=== PATIENT | female | born 1985 | race Caucasian/White ===

== ENCOUNTER 2022-02-16 14:43 | Emergency (ER) | payer OTHER ==
[2022-02-16 15:40] VITALS: BP 137/88
--- NOTE | 2022-02-16 16:13 | XRAY Report ---
PROCEDURE: Chest 1 View X-Ray INDICATIONS: Chest pain TECHNIQUE: One view of the chest was acquired. COMPARISON: None FINDINGS: Surgical changes and devices: None. Lungs and pleura: No pleural effusions or pneumothorax. Lungs are clear. Mediastinum: Mediastinal contours appear normal. Heart size is normal. Bones and chest wall: No suspicious bony lesions. Overlying soft tissues appear unremarkable. IMPRESSION: No acute pulmonary process. Reviewed by: Amelie Concepcion MD on 02/16/2022 4:12 PM PDT Approved by: Amelie Concepcion MD on 02/16/2022 4:12 PM PDT Station ID: [id number]
[2022-02-16 16:17] LABS: BASOPHILS # (AUTO) 0.1 10^3/uL (0.0-0.1); BASOPHILS % (AUTO) 0.6 %; EOSINOPHILS # (AUTO) 0.2 10^3/uL (0.0-0.7); EOSINOPHILS % (AUTO) 2.5 %; HCT - HEMATOCRIT 44.6 % (37.0-47.0); LYMPHOCYTES # (AUTO) 2.1 10^3/uL (1.5-3.5); LYMPHOCYTES % (AUTO) 22.3 %; MEAN CORPUSCULAR HEMOGLOBIN 29.8 pg (27.0-31.0); MEAN CORPUSCULAR HGB CONC 33.6 g/dL (32.0-36.0); MEAN CORPUSCULAR VOLUME 88.5 fL (81.0-99.0); MEAN PLATELET VOLUME 8.6 fL (7.9-10.8); MONOCYTES # (AUTO) 0.6 10^3/uL (0.0-1.0); MONOCYTES % (AUTO) 6.1 %; NEUTROPHILS # (AUTO) 6.4 10^3/uL (1.5-6.6); NEUTROPHILS % (AUTO) 68.2 %; PLT - PLATELET COUNT 293 10^3/uL (130-450); RED BLOOD COUNT 5.04 10^6/uL (4.20-5.40); RED CELL DISTRIBUTION WIDTH 12.1 % (12.0-15.0); WHITE BLOOD COUNT 9.4 x10^3/uL (4.8-10.8)
[2022-02-16 16:30] LABS: ALBUMIN 4.5 g/dL (3.2-5.5); ALBUMIN/GLOBULIN RATIO 1.4 (1.0-2.2); BILIRUBIN,TOTAL 0.5 mg/dL (0.2-1.0); CALCIUM 9.5 mg/dL (8.5-10.3); CREATININE 0.7 mg/dL (0.4-1.0); POTASSIUM 4.4 mmol/L (3.5-5.0); TOTAL PROTEIN 7.8 g/dL (6.7-8.2)
--- NOTE | 2022-02-16 17:46 | ED Physician Documentation ---
PD HPI HEENT - Stated complaint Stated Complaint: C+,CHEST PAIN - Chief complaint Chief Complaint: Resp - History obtained from History obtained from: Patient - Additional information Additional information: 36-year-old woman with rheumatoid arthritis in remission not currently on any immunomodulating therapy. For 3 months she has had sinus congestion and sinus pain with bilateral ear pain. Over the weekend developed headache and chills and tested positive for COVID. Yesterday and today she each had brief very brief episodes of substernal nonradiating very sharp chest pain radiating across the chest not with exertion. Yesterday was milder, today more severe lasting about 30 seconds. Pain-free now. No pedal edema or calf pain. Review of Systems Constitutional: denies: Fever, Chills Cardiac: reports: Chest pain / pressure. denies: Palpitations Respiratory: reports: Dyspnea. denies: Cough PD PAST MEDICAL HISTORY - Present Medications Home Medications: Ambulatory Orders Medication Instructions Recorded Confirmed Amox/Clav 875/125 [Augmentin] 1 each PO Q12H #20 tablet 02/16/22 Cetirizine [ZyrTEC] 10 mg PO DAILY 02/16/22 02/16/22 Spironolactone [Aldactone] 25 mg PO DAILY 02/16/22 02/16/22 metFORMIN [Glucophage] 500 mg PO DAILY 02/16/22 02/16/22 - Allergies Allergies/Adverse Reactions: Allergies Allergy/AdvReac Type Severity Reaction Status Date / Time No Known Drug Allergies Allergy Verified 02/16/22 15:40 PD ED PE NORMAL - Vitals Vital signs reviewed: Yes - General General: Alert and oriented X 3, No acute distress - HEENT HEENT: PERRL, EOMI, Ears normal - Neck Neck: Supple, no meningeal sign, No bony TTP - Cardiac Cardiac: RRR, No murmur - Respiratory Respiratory: No respiratory distress, Clear bilaterally - Abdomen Abdomen: Normal bowel sounds, Soft, Non tender - Back Back: No spinal TTP - Derm Derm: No rash - Extremities Extremities: No edema, No calf tenderness / cord - Neuro Neuro: Alert and oriented X 3, Normal speech Results - Vitals Vitals: Vital Signs - 24 hr 02/16/22 15:33 Temperature 36.7 C Heart Rate 86 Respiratory 20 Rate Blood Pressure 137/88 H O2 Saturation 99 Oxygen O2 Source Room air - EKG (time done) 1542 Rate: Rate (enter#) (87) Rhythm: NSR [place]: Normal Intervals: Normal MO QRS: Normal Ischemia: Normal ST segments Computer interpretation: Agree with computer - Labs Labs: Laboratory Tests 02/16/22 02/16/22 02/16/22 16:12 16:12 16:12 WBC 9.4 RBC 5.04 Hgb 15.0 Hct 44.6 MCV 88.5 MCH 29.8 MCHC 33.6 RDW 12.1 Plt Count 293 MPV 8.6 Neut # (Auto) 6.4 Lymph # (Auto) 2.1 [place] # (Auto) 0.6 Eos # (Auto) 0.2 Baso # (Auto) 0.1 Absolute Nucleated RBC 0.00 Nucleated RBC % 0.0 Sodium 136 Potassium 4.4 Chloride 100 L Carbon Dioxide 29 Anion Gap 7.0 BUN 14 Creatinine 0.7 Estimated GFR (MDRD) 95 Glucose 102 H Calcium 9.5 Total Bilirubin 0.5 AST 30 ALT 39 Alkaline Phosphatase 60 Troponin I High Sens < 2.3 L Total Protein 7.8 Albumin 4.5 Globulin 3.3 Albumin/Globulin Ratio 1.4 Lipase 40 - Rads (name of study) 1v cxr Radiology: EMP read contemporaneously (NAD) PD MEDICAL DECISION MAKING - ED course ED course: 36-year-old woman with longstanding sinus infection, will treat but here now with symptomatic COVID and transient chest pain with negative ischemic work-up. We discussed antivirals, but after discussion she declined. PE considered but unlikely given normal pulse ox and no leg symptoms and no tachycardia. Departure - Departure Disposition: 01 Home, Self Care Clinical Impression: Sinusitis Condition: Good Record reviewed to determine appropriate education?: Yes Instructions: ED Sinusitis Abx Tx Prescriptions: Amox/Clav 875/125 [Augmentin] 1 each PO Q12H #20 tablet Comments: I sent a prescription for antibiotics to [facility] in [place]. Call your doctor to arrange a follow-up appointment, make the next available appointment. In the interim, return anytime if worse or if new symptoms develop.
== END 2022-02-16 17:54 | disposition home or self-care (01) ==
LOC: ED 14:43
DX: J32.9 Chronic sinusitis, unspecified (principal); U07.1 COVID-19; R07.89 Other chest pain
CPT/HCPCS: 36415; 80053; 83690; 84484; 85025; 93005; 99284

== ENCOUNTER 2022-03-16 03:27 | Emergency (ER) | payer OTHER ==
[2022-03-16 03:41] VITALS: BP 135/87
--- NOTE | 2022-03-16 03:49 | ED Physician Documentation ---
History of Present Illness - Stated complaint Stated Complaint: COUGH/CONGESTION - Chief complaint Chief Complaint: Resp - History obtained from History obtained from: Patient - Additonal information Additional information: 36-year-old woman, previously healthy, presents with left ear pain, nasal congestion, clear rhinorrhea, sore throat and cough for the past several days. Denies fever. She does have sick contacts (everyone in her house is sick with similar symptoms). Review of Systems Ten Systems: 10 systems reviewed and negative Constitutional: denies: Fever Nose: reports: Rhinorrhea / runny nose, Congestion Respiratory: reports: Cough. denies: Dyspnea GI: denies: Nausea, Vomiting PD PAST MEDICAL HISTORY - Past Medical History Cardiovascular: None Respiratory: None Neuro: None Endocrine/Autoimmune: None GI: None FUR REMODELER: None : None HEENT: None Psych: None Musculoskeletal: Rheumatoid arthritis Derm: None - Past Surgical History Past Surgical History: No - Present Medications Home Medications: Ambulatory Orders Medication Instructions Recorded Confirmed Spironolactone [Aldactone] 25 mg PO DAILY 02/16/22 03/16/22 metFORMIN [Glucophage] 500 mg PO DAILY 02/16/22 03/16/22 Cefdinir 300 mg PO BID #20 cap 03/16/22 - Allergies Allergies/Adverse Reactions: Allergies Allergy/AdvReac Type Severity Reaction Status Date / Time No Known Drug Allergies Allergy Verified 03/16/22 03:40 - Social History Does the pt smoke?: No Smoking Status: Never smoker Does the pt drink ETOH?: No Does the pt have substance abuse?: No - Immunizations Immunizations are current?: Yes PD ED PE NORMAL - Vitals Vital signs reviewed: Yes - General General: Alert and oriented X 3, No acute distress, Well developed/nourished - HEENT HEENT: Atraumatic, PERRL, EOMI, Moist mucous membranes, Pharynx benign, Other (Left TM erythematous. Right TM clear. Clear rhinorrhea) - Neck Neck: Supple, no meningeal sign - Cardiac Cardiac: RRR - Respiratory Respiratory: No respiratory distress, Clear bilaterally - Derm Derm: Normal color, Warm and dry - Extremities Extremities: No deformity - Neuro Neuro: No motor deficit, No sensory deficit - Psych Psych: Normal mood, Normal affect Results - Vitals Vitals: Vital Signs - 24 hr 03/16/22 03:30 Temperature 36.7 C Heart Rate 72 Respiratory 18 Rate Blood Pressure 135/87 H O2 Saturation 99 Oxygen O2 Source Room air PD MEDICAL DECISION MAKING - ED course ED course: 36-year-old woman presents with viral URI symptoms as well as left otitis media. Antibiotics prescribed. She recently was on amoxicillin 3 weeks ago therefore cefdinir was provided. Return precautions given. She will follow-up with her primary care provider. Departure - Departure Disposition: 01 Home, Self Care Clinical Impression: Viral URI with cough, Otitis media Condition: Good Instructions: ED Otitis Media Acute Adult Prescriptions: Cefdinir 300 mg PO BID #20 cap Comments: You are seen in the emergency department for evaluation of cough, congestion, runny nose, and ear pain. Your left ear appears to have mild ear infection. I am prescribing cefdinir, which can be picked up from your [facility] pharmacy in [place]. Please follow-up with your primary care provider and return to the emergency department if you have any new or worsening symptoms or other concerns.
== END 2022-03-16 04:05 | disposition home or self-care (01) ==
LOC: ED 03:27
DX: J06.9 Acute upper respiratory infection, unspecified (principal); H66.92 Otitis media, unspecified, left ear
CPT/HCPCS: 99282

== ENCOUNTER 2023-06-28 08:45 | Outpatient (CLI) | payer OTHER ==
[2023-06-28 11:59] LABS: HCT - HEMATOCRIT 44.1 % (37.0-47.0); HGB - HEMOGLOBIN 14.3 g/dL (12.0-16.0); MEAN CORPUSCULAR HEMOGLOBIN 28.6 pg (27.0-31.0); MEAN CORPUSCULAR HGB CONC 32.4 g/dL (32.0-36.0); MEAN CORPUSCULAR VOLUME 88.2 fL (81.0-99.0); MEAN PLATELET VOLUME 9.2 fL (7.9-10.8); RED CELL DISTRIBUTION WIDTH 12.8 % (12.0-15.0); WHITE BLOOD COUNT 5.7 x10^3/uL (4.8-10.8)
[2023-06-28 12:37] LABS: CHOL/HDL RATIO 3.4 (<4.4); CHOLESTEROL 178 mg/dL; HDL CHOLESTEROL 52 mg/dL; LDL CHOLESTEROL,CALCULATED 104 mg/dL; TRIGLYCERIDES 110 mg/dL (48-352); VLDL CHOLESTEROL 22 mg/dL
[2023-06-28 13:05] LABS: ESTIMATED AVERAGE GLUCOSE 100 mg/dL (70-100); HEMOGLOBIN A1c% 5.1 % (4.27-6.07)
== END 2023-06-28 08:46 | disposition home or self-care (01) ==
LOC: LAB.N 08:45
PROVIDERS: ATTEND Obstetrics & Gynecology
DX: E28.2 Polycystic ovarian syndrome (principal)
CPT/HCPCS: 36415; 80061; 82166; 83036; 83525; 83721; 85027